=== PATIENT | male | born 1995 | race Hispanic/Latino ===

== ENCOUNTER 2021-05-22 13:55 | Emergency (ER) | payer BC ==
[~2021-05-22] VITALS: Ht 185.4 cm; Wt 72.6 kg
[2021-05-22] MEDS ORDERED: TETANUS/DIPHTHERIA TOX ADULT 0.5 ML SYR IM ONE (14:15)
== END 2021-05-22 16:19 | disposition home or self-care (01) ==
LOC: ER 15:39
DX: S61.432A Puncture wound without foreign body of left hand, initial encounter (principal); W27.8XXA Contact with other nonpowered hand tool, initial encounter
CPT/HCPCS: 90471; 90714; 99283